=== PATIENT | female | born 1975 | race Native Hawaiian/Other Pacific Islander ===

== ENCOUNTER 2017-09-05 08:03 | Day surgery (SDC) | payer BC ==
[2017-08-28 12:53] VITALS: BMI 22.8
[2017-09-05 08:24] VITALS: O2SAT 100
[2017-09-05] MEDS ORDERED: Propofol 10 mg/ml Inj (20 ML) ONE (08:57)
[2017-09-05] MEDS ORDERED: Sodium Chloride 0.9% 1,000 ML IV SCH (09:15)
[2017-09-05 12:58] VITALS: BP 103/64; PULSE 64; RESP 14; TEMP 97.5
== END 2017-09-05 11:19 | disposition home or self-care (01) ==
LOC: ENDO 08:03
PROVIDERS: ATTEND Internal Medicine Gastroenterology
DX: K21.0 Gastro-esophageal reflux disease with esophagitis (principal); K44.9 Diaphragmatic hernia without obstruction or gangrene; K29.70 Gastritis, unspecified, without bleeding
CPT/HCPCS: 43239; 84703; 88305; 88312; 88342; J2704; J7040 ×2